=== PATIENT | male | born 1965 | race Caucasian/White ===

== ENCOUNTER 2018-06-09 05:24 | Emergency (ER) | payer OTHER ==
[~2018-06-09] VITALS: Ht 180.3 cm; Wt 65.4 kg
[~2018-06-09 05:24] MED LIST: BACTRIM DS1 TAB PO; DOXYCYCL HYC100 M4 PO; FLEXERIL OR; FLEXERIL PO; HYDROCODONE/ACE1 TAB PO; LISINOP/HCTZ1 TA1 PO; LORTAB 10 PO; MUCINEX600 MG OR; NAPROSYN500 MG OR; NAPROXEN SOD550 MG PO; NO MEDS; PRILOSEC40 MG PO; PROAIR HFA IN; QVAR80 MCG IN; TRIMOX500 MG PO
[2018-06-09] MEDS ORDERED: BENADRYL 50MG C50 MG PO (05:58)
[2018-06-09] MEDS ORDERED: AMOXICILLIN500 MG PO (05:58)
[2018-06-09] MEDS ORDERED: MEDDOSEPAK PO (05:58)
[2018-06-09] MEDS ORDERED: BENADRY2 EX (05:58)
[2018-06-09 06:23] VITALS: BP 156/75
== END 2018-06-09 06:13 | disposition home or self-care (01) ==
LOC: ED 05:24
DX: L25.9 Unspecified contact dermatitis, unspecified cause (principal); L03.114 Cellulitis of left upper limb; L03.113 Cellulitis of right upper limb; L03.319 Cellulitis of trunk, unspecified; F17.210 Nicotine dependence, cigarettes, uncomplicated; R21 Rash and other nonspecific skin eruption

== ENCOUNTER 2018-09-01 00:33 | Emergency (ER) | payer OTHER ==
[~2018-09-01] VITALS: Ht 180.3 cm; Wt 72.7 kg
[~2018-09-01 00:33] MED LIST changes: +AMOXICILLIN500 MG PO; +BENADRY2 EX; +BENADRYL 50MG C50 MG PO; +MEDDOSEPAK PO
[2018-09-01] MEDS ORDERED: LORTAB 1010 MG PO (01:14)
[2018-09-01 01:30] VITALS: BP 153/102
== END 2018-09-01 01:33 | disposition home or self-care (01) ==
LOC: ED 00:33
DX: S92.325A Nondisplaced fracture of second metatarsal bone, left foot, initial encounter for closed fracture (principal); W22.8XXA Striking against or struck by other objects, initial encounter; Y93.89 Activity, other specified; Y92.009 Unspecified place in unspecified non-institutional (private) residence as the place of occurrence of the external cause

== ENCOUNTER 2018-09-30 09:24 | Inpatient (IN) | payer OTHER ==
[~2018-09-30] VITALS: Ht 180.3 cm; Wt 66.7 kg
[~2018-09-30 09:24] MED LIST changes: +LORTAB 1010 MG PO
--- NOTE | 2018-09-30 09:26 | NUR ---
PT TO ROOM WITH A STEADY GAIT FOR BEDSIDE TRIAGE.
--- NOTE | 2018-09-30 09:52 | NUR ---
PATIENT REPORTS BEING OFF MEDICATION FOR FEW MONTHS. UNABLE TO VERIFY MEDICATIONS.
[2018-09-30 10:19] LABS: HEMATOCRIT 43.3 % (39.0-50.0); HEMOGLOBIN 14.7 g/dl (14.0-18.0); IMMATURE GRANULOCYTES 0.5 % (0.0-5.0); MEAN CELL VOLUME 91.9 fL CALC (80.0-100.0); MEAN CORPUSCULAR HGB 31.2 pG CALC (26.0-32.0); MEAN CORPUSCULAR HGB CONC 33.9 g/L CALC (32.0-36.0); NEUT# 9.04 thou/uL (1.82-7.42); RED BLOOD COUNT 4.71 mill/uL (4.70-6.10); RED CELL DISTRI WIDTH 13.3 % (11.5-15.5)
--- NOTE | 2018-09-30 10:23 | NUR ---
LUNG SOUNDS CLEAR BILATERALLY AFTER BREATHING TREATMENT. 125 MG OF SOLUMEDROL GIVEN, AND IV ANTIBIOTIC STARTED. CALL LIGHT GIVEN INFORMED TO CALL FOR ASSISTANCE. VERBAL UNDERSTANDING. WILL CONTINUE TO MONITOR.
[2018-09-30 10:47] LABS: ALBUMIN 3.7 g/dL (3.2-5.0); ALKALINE PHOSPHATASE 233 u/l (38-126); ANION GAP 16 (6-22 (CALC)); BILIRUBIN, TOTAL 1.1 mg/dL (0.0-1.4); BUN 23 mg/dL (9-20); BUN/CREATININE RATIO 24 (12-20 (CALC)); CARBON DIOXIDE 29 mmol/l (22-30); CHLORIDE 95 mmol/l (95-108); CREATININE 0.9 mg/dL (0.7-1.3); GFR > 60 ML/MIN (>=60 (CALC)); GFR FOR AFR.AMER. > 60 ML/MIN (>=60 (CALC)); POTASSIUM 4.1 mmol/l (3.5-5.1); SGOT/AST 92 u/l (17-59); SODIUM 136 mmol/l (137-146); TOTAL PROTEIN 8.1 g/dL (6.3-8.2)
[2018-09-30 10:59] LABS: MYOGLOBIN 68 ng/mL (0 - 121)
--- NOTE | 2018-09-30 11:00 | NUR ---
PATIENT CONTINUES TO BE ON VENTI MASK, O2 SAT 97% ON MONITOR. DRY COUGH NOTED AT THIS TIME. PATIENT INFORMED OF ADDITIONAL FLUIDS ORDERED. VERBAL UNDERSTANDING. IV SITE HEALTHY, IV FLUIDS INFUSING WELL NO REDNESS OR SWELLING AROUND IV SITE. CALL LIGHT WITHIN REACH. WILL CONTINUE TO MONITOR.
--- NOTE | 2018-09-30 11:27 | NUR ---
PATIENT VENTI MASK BOTHERING HIM, INFORMED. PATIENT SWITCHED TO NASAL CANNULA AT 3L/MIN. O2 SAT 96%. AT BEDSIDE.
[2018-09-30 11:52] LABS: URINE BLOOD DIPSTICK NEGATIVE (NEGATIVE); URINE GLUCOSE - DIPSTICK NEGATIVE (NEGATIVE); URINE KETONE TRACE mg/dL (NEGATIVE); URINE LEUK ESTERASE NEGATIVE (NEGATIVE); URINE NITRITE - DIPSTICK NEGATIVE (Negative); URINE PH 6.5 (4.5-8.0); URINE PROTEIN - DIPSTICK 100 mg/dL (NEG-TRACE)
[2018-09-30 11:53] LABS: URINE BILIRUBIN - DIPSTICK SMALL (NEGATIVE); URINE COLOR DK. YELLOW
[2018-09-30 12:00] LABS: URINE RBC 0-2 RBC/hpf (0-5); URINE WBC 0-2 WBC/hpf (0-5)
--- NOTE | 2018-09-30 12:11 | NUR ---
PATIENT RETURNS FROM CT IN STABLE CONDITION. LAB AT BEDSIDE FOR REPEAT LACTIC ACID. SET UP WITH FOOD TRAY.
--- NOTE | 2018-09-30 13:16 | NUR ---
PATIENT RESTING ON STRETCHER, 50% OF MEAL TRAY INTAKE. PATIENT REPORTS SOB AFTER EATING. LUNG SOUNDS CLEAR BILATERALLY. INFORMED, ADDITIONAL NEB TREATMENT ORDERED. RT PAGED.
--- NOTE | 2018-09-30 13:28 | NUR ---
BREATHING TREATMENT GIVEN.
--- NOTE | 2018-09-30 14:15 | NUR ---
ATTEMPT MADE TO CALL REPORT, NURSE REQUESTING TO CALL BACK FOR REPORT.
--- NOTE | 2018-09-30 14:30 | NUR ---
NO CHANGE IN PATIENT STATUS. PATIENT TO XRAY FOR ADDITIONAL TEST ORDERED BY . WAITING TO GIVE NURSE TO NURSE REPORT.
--- NOTE | 2018-09-30 14:50 | NUR ---
REPORT GIVEN TO JASWANT CHIN. PATIENT CONTINUES IN RADIOLOGY DEPARTMENT.
[2018-09-30 15:05] VITALS: BP 128/75
--- NOTE | 2018-09-30 15:05 | NUR ---
PATIENT TRANSPORTED TO [facility] VIA STRETCHER WITH TELE AND O2 IN PLACE. PATIENT REFUSED TO TAKE PANTS OFF STATES "I WANT TO TAKE A SHOWER, SO ILL JUST TAKE THEM OFF THEN." JASWANT CHIN AT BEDSIDE. CARE RELINQUISHED.
--- NOTE | 2018-09-30 15:20 | NUR ---
REPORT RECEIVED FROM LITA IN ED, PT ARRIVED ON UNIT VIA STRETCHER, ALERT AND ORIENTED X 3, AMBULATED TO STANDING SCALE, WEIGHED AND SETTLED IN BED. ORIENTED TO ROOM AND CALL ZABALA, C/O HEARTBURN AND UPSET STOMACH AND REQUESTING MEDS FOR SAID CONDITION. O2 @ 2L VIA NC IN PLACE, PT COUGHING AT THIS TIME AND REPORTS PRODUCTIVE YELLOW/GREEN SPUTUM WHICH HAS NOT YET BEEN OBSERVED BY NURSE. IN BATHROOM AT THIS TIME FOR LAST 15 MINS, WILL CONTINUE TO MONITOR.
[2018-09-30 19:09] VITALS: BP 125/74
--- NOTE | 2018-09-30 19:20 | NUR ---
REPORT FROM ELSY MICHAUD. PT SITTING UP IN BED TALKING WITH CASE MANAGEMENT AT THIS TIME. DENIES ANY NEEDS. CALL LIGHT WITHIN REACH. WILL CONTINUE TO MONITOR.
--- NOTE | 2018-09-30 22:00 | NUR ---
PT C/O INDIGESTION. NOTIFIED HOTEL REGISTRATION CLERK PHYSICIAN AT THIS TIME. NEW ORDERS RECIEVED FOR PROTONIX 40MG PO DAILY GIVE FIRST DOSE NOW. WILL MEDICATED WHEN PHARMACY PROFILES MED.
[2018-09-30 23:50] VITALS: BP 134/67
--- NOTE | 2018-10-01 02:26 | NUR ---
PT RESTING IN BED WITH EYES CLOSED. NO S/S OF PAIN OR DISCOMFORT NOTED. RESPIRATIONS EVEN AND UNLABORED. CALL LIGHT WITHIN REACH. WILL CONTINUE TO MONITOR.
[2018-10-01 04:35] VITALS: BP 146/80
[2018-10-01 05:31] LABS: IMMATURE GRANULOCYTES 0.7 % (0.0-5.0); MEAN CELL VOLUME 92.7 fL CALC (80.0-100.0); MEAN CORPUSCULAR HGB 31.4 pG CALC (26.0-32.0); MEAN CORPUSCULAR HGB CONC 33.9 g/L CALC (32.0-36.0); NEUT# 8.01 thou/uL (1.82-7.42); RED BLOOD COUNT 3.98 mill/uL (4.70-6.10); RED CELL DISTRI WIDTH 13.5 % (11.5-15.5)
[2018-10-01 05:32] LABS: HEMATOCRIT 36.9 % (39.0-50.0); HEMOGLOBIN 12.5 g/dl (14.0-18.0)
[2018-10-01 06:04] LABS: ALKALINE PHOSPHATASE 171 u/l (38-126); AMYLASE < 30 u/l (30-110); ANION GAP 15 (6-22 (CALC)); BILIRUBIN, TOTAL 0.6 mg/dL (0.0-1.4); BUN 19 mg/dL (9-20); BUN/CREATININE RATIO 25 (12-20 (CALC)); CARBON DIOXIDE 26 mmol/l (22-30); CHLORIDE 102 mmol/l (95-108); CREATININE 0.8 mg/dL (0.7-1.3); GFR > 60 ML/MIN (>=60 (CALC)); GFR FOR AFR.AMER. > 60 ML/MIN (>=60 (CALC)); LIPASE 132 u/l (23-300); POTASSIUM 4.3 mmol/l (3.5-5.1); SGOT/AST 55 u/l (17-59); SODIUM 138 mmol/l (137-146); TOTAL PROTEIN 6.5 g/dL (6.3-8.2)
[2018-10-01 06:17] LABS: ALBUMIN 2.9 g/dL (3.2-5.0)
--- NOTE | 2018-10-01 06:34 | NUR ---
PT VOIDED IN URINAL. 200ML TEA COLORED URINE EMPTIED AT THIS TIME.
[2018-10-01 07:45] VITALS: BP 133/66
--- NOTE | 2018-10-01 07:50 | NUR ---
SHIFT CHANGE REPORT, PT AWAKE ALERT AND ORIENTED SITTING UP IN BED, STATES HE FEELS MUCH BETTER THIS MORNING, TELE MONITOR IN PLACE, CALL ZABALA IN REACH.
[2018-10-01 11:15] VITALS: BP 132/71
--- NOTE | 2018-10-01 14:22 | NUR ---
SITTING ON CHAIR IN ROOM DRESSED IN STREET CLOTHES STATING HE HAS TO GO HOME THERE ARE PEOPLE (HIS STEP-KIDS) AT HIS HOUSE STEALING HIS BELONGINGS AND THEY ARE ALL DRUG ADDICTS. INFORMED THERE WAS NO ORDER FROM MD TO DISCHARGE HIM BUT WILL INVESTIGATE MORE, WILL CONTINUE TO MONITOR.
--- NOTE | 2018-10-01 15:38 | NUR ---
ANXIOUS TO LEAVE, TOOK OF MONITOR, ADVISED MEDICAL STAFF IS STILL WORKING ON D/C BUT HE IS THREATENING TO LEAVE AMA IF NO ONE PROCESS THE DOCUMENTS SOON, ENCOURAGED TO BE PATIENT AND HIS TURN WILL COME.
[2018-10-01] MEDS ORDERED: LEVAQUIN750 MG PO (15:56)
[2018-10-01] MEDS ORDERED: MEDDOSEPAK PO (15:56)
--- NOTE | 2018-10-01 16:58 | NUR ---
Discharge instructions given. Patient verbalizes understanding of same. Discharged in stable condition via Ambulatory to Home with *Other. All belongings sent with pt.
== END 2018-10-01 16:40 | disposition home or self-care (01) | DRG 190 ==
LOC: ED 09:24 → ED-I 13:28 → ED 13:41 → MS2 13:42
PROVIDERS: Emergency Medicine; ADMIT Internal Medicine Nephrology; ATTEND Internal Medicine Nephrology
DX: J44.1 Chronic obstructive pulmonary disease with (acute) exacerbation (principal); J18.9 Pneumonia, unspecified organism; J44.0 Chronic obstructive pulmonary disease with (acute) lower respiratory infection; I10 Essential (primary) hypertension; K21.9 Gastro-esophageal reflux disease without esophagitis; K76.0 Fatty (change of) liver, not elsewhere classified; R59.1 Generalized enlarged lymph nodes; H54.62 Unqualified visual loss, left eye, normal vision right eye; S05.92XD Unspecified injury of left eye and orbit, subsequent encounter; X58.XXXD Exposure to other specified factors, subsequent encounter; Z87.891 Personal history of nicotine dependence; Z59.0 Homelessness
CPT/HCPCS: Q9967

== ENCOUNTER 2018-10-09 08:20 | Emergency (ER) | payer OTHER ==
[~2018-10-09] VITALS: Ht 180.3 cm; Wt 70.5 kg
[~2018-10-09 08:20] MED LIST changes: +LEVAQUIN750 MG PO
[2018-10-09 09:23] LABS: HEMOGLOBIN 13.4 g/dl (14.0-18.0); IMMATURE GRANULOCYTES 1.8 % (0.0-5.0); MEAN CELL VOLUME 95.3 fL CALC (80.0-100.0); MEAN CORPUSCULAR HGB 31.2 pG CALC (26.0-32.0); MEAN CORPUSCULAR HGB CONC 32.7 g/L CALC (32.0-36.0); NEUT# 4.08 thou/uL (1.82-7.42); RED BLOOD COUNT 4.3 mill/uL (4.70-6.10); RED CELL DISTRI WIDTH 13.5 % (11.5-15.5)
[2018-10-09 09:37] LABS: ALBUMIN 3.5 g/dL (3.2-5.0); ALKALINE PHOSPHATASE 109 u/l (38-126); ANION GAP 11 (6-22 (CALC)); BILIRUBIN, TOTAL 0.5 mg/dL (0.0-1.4); BUN 18 mg/dL (9-20); BUN/CREATININE RATIO 22 (12-20 (CALC)); CARBON DIOXIDE 26 mmol/l (22-30); CHLORIDE 102 mmol/l (95-108); CREATININE 0.9 mg/dL (0.7-1.3); GFR > 60 ML/MIN (>=60 (CALC)); GFR FOR AFR.AMER. > 60 ML/MIN (>=60 (CALC)); POTASSIUM 4.1 mmol/l (3.5-5.1); SGOT/AST 27 u/l (17-59); SODIUM 135 mmol/l (137-146); TOTAL PROTEIN 7.6 g/dL (6.3-8.2)
[2018-10-09] MEDS ORDERED: CLEOCIN300 M1 IV (11:37)
[2018-10-09] MEDS ORDERED: PERCOCET 10/31 COMBO PO (11:37)
[2018-10-09] MEDS ORDERED: ERYTHROMYCIN O3.5 GM OU (11:39)
[2018-10-09] MEDS ORDERED: ACULAR LS0.4 % OS (11:39)
[2018-10-09] MEDS ORDERED: CLEOCIN300 MG PO (11:48)
[2018-10-09 11:56] VITALS: BP 161/80
== END 2018-10-09 11:56 | disposition home or self-care (01) ==
LOC: ED 08:20
PROVIDERS: Emergency Medicine
DX: H04.002 Unspecified dacryoadenitis, left lacrimal gland (principal); I10 Essential (primary) hypertension; H54.62 Unqualified visual loss, left eye, normal vision right eye
CPT/HCPCS: Q9967

== ENCOUNTER 2018-11-17 11:34 | Emergency (ER) | payer OTHER ==
[~2018-11-17] VITALS: Ht 180.3 cm; Wt 60.0 kg
[~2018-11-17 11:34] MED LIST changes: +ACULAR LS0.4 % OS; +CLEOCIN300 M1 IV; +CLEOCIN300 MG PO; +ERYTHROMYCIN O3.5 GM OU; +PERCOCET 10/31 COMBO PO
[2018-11-17 15:09] LABS: HEMOGLOBIN 13.8 g/dl (14.0-18.0); IMMATURE GRANULOCYTES 0.2 % (0.0-5.0); MEAN CELL VOLUME 90.1 fL CALC (80.0-100.0); MEAN CORPUSCULAR HGB 31.9 pG CALC (26.0-32.0); MEAN CORPUSCULAR HGB CONC 35.4 g/L CALC (32.0-36.0); NEUT# 3.06 thou/uL (1.82-7.42); RED BLOOD COUNT 4.33 mill/uL (4.70-6.10); RED CELL DISTRI WIDTH 14.4 % (11.5-15.5)
[2018-11-17 15:26] LABS: ANION GAP 14 (6-22 (CALC)); BUN 13 mg/dL (9-20); BUN/CREATININE RATIO 18 (12-20 (CALC)); CARBON DIOXIDE 29 mmol/l (22-30); CHLORIDE 99 mmol/l (95-108); CREATININE 0.8 mg/dL (0.7-1.3); GFR > 60 ML/MIN (>=60 (CALC)); GFR FOR AFR.AMER. > 60 ML/MIN (>=60 (CALC)); SODIUM 139 mmol/l (137-146)
[2018-11-17 15:27] LABS: POTASSIUM 3.1 mmol/l (3.5-5.1)
[2018-11-17] MEDS ORDERED: OFLOXACIN0.3 % OS (16:12)
[2018-11-17 16:20] VITALS: BP 155/65
[2018-11-17] MEDS ORDERED: MOTRIN400 MG PO (16:29)
== END 2018-11-17 16:38 | disposition home or self-care (01) ==
LOC: ED 11:34
PROVIDERS: Family Medicine
DX: R51 Headache (principal); H10.32 Unspecified acute conjunctivitis, left eye; R50.9 Fever, unspecified; I10 Essential (primary) hypertension
CPT/HCPCS: Q9967

== ENCOUNTER 2020-02-03 13:26 | Emergency (ER) | payer OTHER ==
[~2020-02-03] VITALS: Ht 180.3 cm; Wt 75.0 kg
[~2020-02-03 13:26] MED LIST changes: +MOTRIN400 MG PO; +OFLOXACIN0.3 % OS
[2020-02-03] MEDS ORDERED: PROAIR HFA108 MCG/AC IN ×2 (15:27→21:21)
[2020-02-03] MEDS ORDERED: PREDNISONE20 MG PO ×2 (15:27→21:21)
[2020-02-03 15:46] VITALS: BP 178/87
== END 2020-02-03 15:46 | disposition home or self-care (01) ==
LOC: ED 13:26
DX: J44.1 Chronic obstructive pulmonary disease with (acute) exacerbation (principal); I10 Essential (primary) hypertension; F17.210 Nicotine dependence, cigarettes, uncomplicated; T48.6X6A Underdosing of antiasthmatics, initial encounter; Z91.128 Patient's intentional underdosing of medication regimen for other reason; Z20.828 Contact with and (suspected) exposure to other viral communicable diseases

== ENCOUNTER 2020-11-16 12:08 | Emergency (ER) | payer OTHER ==
[~2020-11-16 12:08] MED LIST changes: +PREDNISONE20 MG PO; +PROAIR HFA108 MCG/AC IN
[2020-11-16] MEDS ORDERED: [UNRECOGNIZED DRUG - OTHER] (13:18)
[2020-11-16] MEDS ORDERED: ACETAZOLAMID250 MG PO (13:53)
[2020-11-16 14:04] VITALS: BP 155/85
== END 2020-11-16 14:07 | disposition home or self-care (01) ==
LOC: ED 12:08
DX: H40.9 Unspecified glaucoma (principal); I10 Essential (primary) hypertension; J44.9 Chronic obstructive pulmonary disease, unspecified; H54.62 Unqualified visual loss, left eye, normal vision right eye; F17.210 Nicotine dependence, cigarettes, uncomplicated

== ENCOUNTER 2023-03-29 14:27 | Emergency (ER) | payer OTHER ==
[~2023-03-29] VITALS: Ht 180.3 cm; Wt 65.8 kg
[2023-03-29] VITALS (12 sets, daily range): BP systolic 119–160; BP diastolic 73–92
[~2023-03-29 14:27] MED LIST changes: +ACETAZOLAMID250 MG PO; +[UNRECOGNIZED DRUG - OTHER]
[2023-03-29 14:58] LABS: BASO% 0.4 % (0-3); HEMATOCRIT 41.1 % (39.0-50.0); HEMOGLOBIN 14.1 g/dl (14.0-18.0); IMMATURE GRANULOCYTES 0.2 % (0.0-5.0); LYMPH% 20.7 % (15-41); MEAN CELL VOLUME 93.8 fL CALC (80.0-100.0); MEAN CORPUSCULAR HGB 32.2 pG CALC (26.0-32.0); MEAN CORPUSCULAR HGB CONC 34.3 g/dL CAL (32.0-36.0); MONO% 8.5 % (2-13); NEUT# 3.53 thou/uL (1.82-7.42); NEUT% 65.2 % (42-76); RED BLOOD COUNT 4.38 mill/uL (4.70-6.10); RED CELL DISTRI WIDTH 12.8 % (11.5-15.5)
[2023-03-29 15:18] LABS: ALBUMIN 4.1 g/dL (3.2-5.0); ALKALINE PHOSPHATASE 52 u/l (38-126); ANION GAP 11 (6-22 (CALC)); BILIRUBIN, TOTAL 0.5 mg/dL (0.2-1.3); BUN 17 mg/dL (9-20); BUN/CREATININE RATIO 16 (12-20 (CALC)); CARBON DIOXIDE 29 mmol/l (22-30); CHLORIDE 103 mmol/l (95-108); CREATININE 1.1 mg/dL (0.7-1.3); GFR FOR AFR.AMER. > 60 ML/MIN (>=60 (CALC)); GFR OTHER RACES > 60 ML/MIN (>=60 (CALC)); LIPASE 97 u/l (23-300); POTASSIUM 4.3 mmol/l (3.5-5.1); SGOT/AST 31 u/l (17-59); SODIUM 139 mmol/l (137-146); TOTAL PROTEIN 7.4 g/dL (6.3-8.2)
[2023-03-29] MEDS ORDERED: METHOCARBAMOL500 MG PO (17:25)
[2023-03-29] MEDS ORDERED: NAPROXEN500 MG PO (17:25)
== END 2023-03-29 17:47 | disposition home or self-care (01) | DRG 313 ==
LOC: ED 14:27
PROVIDERS: Nurse Practitioner
DX: R07.89 Other chest pain (principal); I10 Essential (primary) hypertension; J44.9 Chronic obstructive pulmonary disease, unspecified; F17.200 Nicotine dependence, unspecified, uncomplicated; Z20.822 Contact with and (suspected) exposure to COVID-19